=== PATIENT | female | born 1925 | race Caucasian/White ===

== ENCOUNTER 2016-05-24 17:41 | Emergency (ER) | payer OTHER ==
[~2016-05-24] VITALS: Ht 165.1 cm; Wt 81.6 kg
[~2016-05-24 17:41] MED LIST: ALBUTEROL SULF8.5 GM IH; ALLERGY RELIEF10 M1 PO; ALLERGY RELIEF25 MG PO; ANTIFUNGAL15 G1 TP; ARICEPT5 MG PO; ASPERCREME 1035.4 GM TP; ASPIR-LOW81 MG PO; AUGMENTIN875 MG PO; BACTRIM,SEPT1 TABLET PO; BACTROBAN TP; BUMEX0.5 MG PO; Bactroban Nasal Oint BOTH NARES; CALMOSEPTINE O120 GM TP; CEFDINIR300 MG PO; CELEBREX200 MG PO; CELECOXIB200 MG PO; CIPROFLOXACIN250 MG PO; COREG CR40 MG PO; COREG12.5 M1 PO; COREG6.25 M1 PO; Cleocin PO; Coreg PO; HEMORRHOIDAL OI57 G2 PR; KEFLEX500 MG PO; KLOR-CON SPRIN10 MEQ PO; LEVOTHYROXINE100 MCG PO; LIPITOR40 MG PO; LO-DOSE ASPIRIN81 M1 PO; LOTRIMIN AF24 GM TP; LOTRIMIN ULTRA12 GM TP; LOTRISONE15 GM TP; Lovenox SC; MIRALAX255 GM PO; MOTRIN600 MG PO; MYCOSTATIN1 APPLICAT TP; NORCO 5/3251 TABLET PO; POLYETHYLENE GL17 GM PO; PREDNISONE50 MG PO; SALINE NOSE SPR45 M1 BOTH NARES; ST. JOSEPH ASPI81 MG PO; SYNTHROID100 MCG PO; TYLENOL REGULA325 MG PO; ULTRAM50 MG PO; UNITHROID100 MCG PO; ZITHROMAX Z-PA250 MG PO; [UNRECOGNIZED DRUG - OTHER] TP
[2016-05-24 18:21] LABS: HEMATOCRIT 39.8 % (36.0-46.0); MCH 29.3 PG (29.0-34.0); MCHC 32.4 G/DL (30.0-36.0); MCV 90.2 FL (83-99); MEAN PLAT.VOLUME 10.3 uM^3 (9.5-12.4); PLATELET COUNT 185 K/uL (156-360); RBC DIS.WIDTH-SD 42.5 % (39-53); RED BLOOD COUNT 4.41 M/uL (3.80-5.20); WHITE BLOOD COUNT 8.6 K/uL (4.1-10.2)
[2016-05-24 18:23] LABS: EOSINOPHIL (%) 3.5 % (0-5); EOSINOPHIL COUNT 0.3 K/uL (0-0.3); IMMATURE GRANULOCYTE (%) 0.1 % (0.0-0.7); IMMATURE GRANULOCYTE COUNT 0.1 K/uL; LYMPHOCYTE COUNT 1.9 K/uL (1.0-2.8); MONOCYTE (%) 17.8 % (3-12); MONOCYTE COUNT 1.5 K/uL (0-0.8); NEUTROPHIL (%) 56.7 % (45-76); NEUTROPHIL COUNT 4.9 K/uL (1.8-6.4)
[2016-05-24 18:35] LABS: CHLORIDE 99 mEq/L (99-109); POTASSIUM 4.5 mEq/L (3.7-5.4); SODIUM 139 mEq/L (136-147)
[2016-05-24 18:37] LABS: GLUCOSE 107 mg/dL (70-99)
[2016-05-24 18:38] LABS: ANION GAP 10 MEQ/L (2-14)
[2016-05-24 18:39] LABS: TOTAL BILIRUBIN 0.4 mg/dL (0.0-1.0)
[2016-05-24 18:40] LABS: ALKALINE PHOSPHATASE 85 IU/L (3-129)
[2016-05-24 18:41] LABS: GFR ESTIMATE (CALCULATED) 45 mL/min/
[2016-05-24 18:42] LABS: UREA NITROGEN (BUN) 31 mg/dL (9-23)
[2016-05-24 18:47] LABS: TROP-I INTERPRETATION NEGATIVE; TROPONIN-I < 0.01 ng/mL (0.0-0.30)
[2016-05-24 19:17] LABS: ADD MIUA? YES; BILIRUBIN NEGATIVE; BLOOD SMALL; COLOR YELLOW ((YELLOW)); GLUCOSE (STRIP) NEGATIVE; KETONES NEGATIVE; LEUKOCYTES LARGE; NITRITE NEGATIVE; PROTEIN (STRIP) 30; SPECIFIC GRAVITY 1.012 (1.000-1.030); UROBILINOGEN 0.2 MG/DL (0.2-1.0)
[2016-05-24 20:15] LABS: BACTERIA 2+ /HPF; EPITHELIAL CELLS 1+ /HPF; MUCUS NONE SEEN /LPF; RED BLOOD CELLS 0-5 /HPF (0-5); UCUL ADDED? YES; WHITE BLOOD CELLS 40-50 /HPF (0-5)
[2016-05-24] MEDS ORDERED: KEFLEX500 MG PO (20:51)
[2016-05-24 21:52] VITALS: BP 120/60
== END 2016-05-24 21:59 | disposition home or self-care (01) ==
LOC: EME → EDBD 17:41 → EME 21:59
PROVIDERS: Emergency Medicine
DX: S09.90XA Unspecified injury of head, initial encounter (principal); W01.0XXA Fall on same level from slipping, tripping and stumbling without subsequent striking against object, initial encounter; Y92.199 Unspecified place in other specified residential institution as the place of occurrence of the external cause; E86.0 Dehydration; N39.0 Urinary tract infection, site not specified; R60.0 Localized edema; I10 Essential (primary) hypertension; E03.9 Hypothyroidism, unspecified; F03.90 Unspecified dementia, unspecified severity, without behavioral disturbance, psychotic disturbance, mood disturbance, and anxiety
CPT/HCPCS: 70450; 71020; 80053; 81003; 84484; 85025; 87077; 87086; 87186; 93005; 99281; 99285; J7030